=== PATIENT | female | born 1960 | race Caucasian/White ===

== ENCOUNTER 2018-10-15 11:52 | Emergency (ER) | payer SELFPAY ==
--- NOTE | 2018-10-15 12:26 | UC ---
Respiratory Complaint HPI - HPI Summary HPI Summary: Cough, pleuritic pain for 4 days w/ no sick contacts. [place]. Cough keeps her up at night. Afebrile, denies headache, n/v, diarrhea. she is about to see her 2 wks old grand son and worried she will pass to him. has updated tdap, flu. - History of Current Complaint Chief Complaint: UCRespiratory Stated Complaint: CHEST CONGESTION Time Seen by Provider: 10/15/18 11:56 Hx Obtained From: Patient ?: No Onset/Duration: Sudden Onset Pain Intensity: 1 Character: Cough: Productive Aggravating Factors: Deep Breaths Alleviating Factors: Nothing - Risk Factors Pulmonary Embolism Risk Factors: Recent Travel - Allergies/Home Medications Allergies/Adverse Reactions: Allergies Allergy/AdvReac Type Severity Reaction Status Date / Time No Known Allergies Allergy Verified 10/15/18 12:08 Home Medications: Home Medications Loratadine 10 mg PO DAILY 10/15/18 [History Confirmed 10/15/18] PMH/Surg Hx/FS Hx/Imm Hx Previously Healthy: Yes - Surgical History Surgical History: Yes Surgery Procedure, Year, and Place: bowel - Social History Alcohol Use: Rare Substance Use Type: None Smoking Status (MU): Never Smoked Tobacco Review of Systems All Other Systems Reviewed And Are Negative: Yes Constitutional: Positive: Negative Skin: Positive: Negative Respiratory: Positive: Cough Cardiovascular: Positive: Negative Gastrointestinal: Positive: Negative Neurological: Positive: Negative Psychological: Positive: Negative Physical Exam Triage Information Reviewed: Yes Appearance: Well-Appearing Vital Signs: Initial Vital Signs Temp 97 F 10/15/18 12:05 Pulse 88 10/15/18 12:05 Resp 16 10/15/18 12:05 BP 146/90 10/15/18 12:05 Pulse Ox 99 10/15/18 12:05 Vital Signs Reviewed: Yes Eyes: Positive: Conjunctiva Clear ENT: Positive: Pharynx normal, TMs normal Neck: Positive: No Lymphadenopathy Respiratory Exam: Normal Cardiovascular Exam: Normal UC Diagnostic Evaluation - Laboratory O2 Sat by Pulse Oximetry: 99 Respiratory Course/Dx - Course Course Of Treatment: Viral bronchitis; self limiting. Lung exam nl, vitals good. She insisted on zpack and explained that this may not help as it is of viral etiology. - Differential Dx/Diagnosis Differential Diagnosis/HQI/PQRI: Asthma, Bronchitis, Lower Resp Infection Provider Diagnosis: Bronchitis Discharge - Sign-Out/Discharge Documenting (check all that apply): Patient Departure All imaging exams completed and their final reports reviewed: No Studies - Discharge Plan Condition: Good Disposition: HOME Prescriptions: Acetaminoph/Cod 120/12 mg LIQ* [Tylenol/Codeine 120/12 LIQ*] 10 ml PO Q4H PRN # 120 udc MDD 100mL/24hr PRN Reason: Cough Azithromycin TAB* [Zithromax TAB (Z-MANUEL) 250 mg #6 tabs] 2 tab PO .TODAY, THEN 1 DAILY #1 manuel Patient Education Materials: Acute Bronchitis (ED) Referrals: No Primary Care Phys,NOPCP [Primary Care Provider] - - Billing Disposition and Condition Condition: GOOD Disposition: Home
== END 2018-10-15 12:35 | disposition home or self-care (01) ==
LOC: UCEAST 11:52
DX: J40 Bronchitis, not specified as acute or chronic (principal)
CPT/HCPCS: 99202; G0463